=== PATIENT | male | born 1980 | race Caucasian/White ===

== ENCOUNTER 2019-09-10 09:50 | Outpatient (CLI) | payer OTHER ==
--- NOTE | 2019-09-06 08:39 | NUR ---
LMOM DATE TIME AND CALL BACK NUMBER
[2019-09-10] VITALS (7 sets, daily range): BP systolic 105–170; BP diastolic 69–92; PULSE 65–80
[~2019-09-10] VITALS: Ht 180.3 cm; Wt 83.9 kg
[~2019-09-10 09:50] MED LIST: HYZAAR 25 MG-101 TAB PO
--- NOTE | 2019-09-10 11:12 | NUR ---
Transferred by cart from radiology. Bandaid to low back CD&I. VSS.
--- NOTE | 2019-09-10 12:12 | NUR ---
Discharge instructions given. Ambulated with pt to private car.
== END 2019-09-10 12:12 | disposition home or self-care (01) ==
LOC: COL.RAD 09:50
DX: M50.30 Other cervical disc degeneration, unspecified cervical region (principal); M47.812 Spondylosis without myelopathy or radiculopathy, cervical region; M50.323 Other cervical disc degeneration at C6-C7 level
CPT/HCPCS: Q9967